=== PATIENT | female | born 1985 | race American Indian/Alaskan Native ===

== ENCOUNTER 2020-06-28 13:25 | Outpatient (CLI) | payer OTHER ==
--- NOTE | 2020-06-30 13:23 | Ultrasound Report ---
BILATERAL DIGITAL DIAGNOSTIC MAMMOGRAM WITH CAD CONVENTIONAL, 06/28/2020 LEFT COMPLETE BREAST ULTRASOUND CLINICAL INFORMATION / INDICATION: History of chronic left breast pain, left clear/bloody nipple disc harge for 2 years, previous ultrasound with possible intraductal lesion TECHNIQUE: Digital bilateral mammographic imaging was performed. Limited ultrasound was performed. Th is examination was interpreted with the benefit of Computer-Aided Detection (CAD) analysis. COMPARISON: Multiple outside studies including bilateral mammography 03/24/2019, bilateral breast ult rasound 03/24/2019, left breast ultrasound biopsy images 03/26/2019, left breast ultrasound 0 FINDINGS: Breast Density: There are scattered areas of fibroglandular density. MAMMOGRAPHIC FINDINGS: No dominant mass, suspicious calcifications, or architectural distortion in ei ther breast. Interval left biopsy changes are seen in the subareolar region. Mild bilateral nodularit y is stable. Mild calcifications are stable. ULTRASOUND FINDINGS: Complete sonographic evaluation of all 4 quadrants and retroareolar region was p erformed. Previous ultrasounds have been in the subareolar area is only. Left breast: In the subareolar area on prior studies intraductal lesions have been seen measuring up to 16 mm in length. That largest lesion appeared to have undergone biopsy in 2019. More recent images and March 2020 appear to show one or 2 much smaller intraductal mildly echogenic foci measuring u p to 4 mm. On today's examination in the retroareolar area of there are multiple intraductal lesions noted involving multiple ducts. Moderate multiduct ductal ectasia is seen. The largest individual les ion measures 9 mm at approximately 11:30 which appears likely to be the same area noted in 2019 with subsequent biopsy. No significant increased vascularity is seen. Just medial to the nipple area at 9:00, 3 cm from the nipple, 2 adjacent benign-appearing hypoechoic nodules are seen measuring up to 7 mm which are not clearly intraductal. In the 1:00 position, 4 cm from the nipple, a small solid nodule is seen measuring 12 mm. This does n ot show shadowing. I do not have an assessment of vascularity. Borders are mildly microlobulated. Les ion is wider than tall. Just inferiorly at 2:00, 4 cm from the nipple, a 4 mm minimal hypoechoic nodu le is seen which has a benign type of appearance. The left axilla shows a node with a focally prominent cortex measuring up to 6 mm though with a large fatty hilum. Right breast: In the retroareolar area medially and ovoid 2 cm wider than tall mass is seen without o bvious vascularity with possible mild shadowing. Borders are mildly macrolobulated though not all bor ders are well-defined. In the 1:00 position, 5 cm from the nipple, an irregular mass is seen measuring 12 mm with moderate s hadowing. Borders are microlobulated and microlobulated. At 1:00, 3 cm from the nipple, a small simple cyst is noted. At 5:00 in the subareolar area an appare nt intraductal area of moderate echogenicity is seen which may be a nodule measuring 6 mm. Also in th e retroareolar area 2 cm from the nipple at 10:00, what may be an intraductal lesion versus debris is seen measuring 6 mm. At the 6:00 position, 3 cm from the nipple, possible nodule is seen versus a band of breast tissue. T his measures 12 mm in length and shows no significant shadowing or vascularity. In the 9:00 position, 9 cm from the nipple, what appears to be a small cyst cluster is noted. In the 10:00 position, 10 cm from the nipple, an ovoid solid nodule is seen without shadowing but wit h mild peripheral and internal vascularity. Borders are slightly microlobulated. An adjacent 6 mm patience ign-appearing nodule is seen. These 2 nodules appear to correspond to is stable nodularity mammograph ically. Right axilla shows no significant lesions. IMPRESSION: 1. There appears to continue to be extensive left retroareolar intraductal filling defects which may represent papilloma formation though some of this could be debris. This includes areas noted on prior examinations and an area of prior biopsy as described. A small similar area is seen on the right. 2. Multiple bilateral breast nodules are seen with the most prominent in the right retroareolar regio n. Areas of most concern are the described mass in the right retroareolar region medially and a small mass in the right breast at 1:00, 5 cm from the nipple. Biopsy of both of these areas is indicated s onographically. 3. The multiple other nodules are less worrisome in appearance. 4. It may be worthwhile to obtain MR given the multiplicity of bilateral lesions prior to possible bi opsies. This may be guided biopsy choice further. Follow up recommendation: As above BI-RADS Category 4: Suspicious for Malignancy. A "normal" or negative report should not discourage follow up or biopsy of a clinically significant f inding. A written summary of these findings will be mailed to the patient. The patient will be entered into a mammography reporting system which will generate a reminder letter for the patient's next appointmen t at the appropriate interval. According to the [employer], yearly mammograms are recommended starting at age 40 and continuing as long as a woman is in good health. Breast MRI is recommended for women with an dianne roximately 20-25% or greater lifetime risk of breast cancer, including women with a strong family his tory of breast or ovarian cancer and women who have been treated for Hodgkin's disease. Signer Name: Hernandez Chang MD Signed: 06/30/2020 1:19 PM Workstation Name: [email or web address]
== END 2020-06-28 13:26 | disposition home or self-care (01) ==
LOC: SPVWC 13:25
PROVIDERS: ATTEND Surgery
DX: N63.41 Unspecified lump in right breast, subareolar (principal); N60.42 Mammary duct ectasia of left breast; N64.52 Nipple discharge
CPT/HCPCS: 77066

== ENCOUNTER 2020-08-24 12:24 | Outpatient (CLI) | payer OTHER ==
--- NOTE | 2020-08-30 10:39 | Magnetic Resonance Report ---
Bilateral breast MRI with and without contrast. History: NIPPLE DISCHARGE Procedure: Axial T1 and T2-weighted fat-sat images were obtained precontrast. 14 cc Clariscan was in jected intravenously and serial axial T1-weighted images with fat saturation were obtained postcontra st. 3-D MIP projections, Kinetic analysis and subtraction imaging was utilized to evaluate. A [employer] ed 8 channel breast coil was utilized for image acquisition. Comparison: Bilateral breast ultrasound 06/28/2020, bilateral mammogram 06/28/2020 Findings: Background level of enhancement is mild. No suspicious axillary or clavicular nodes are identified. No abnormal bone marrow signal is seen. No significant chest wall enhancement is noted. Right breast: In the upper inner quadrant of the right breast at approximately 1:00, anterior to mid depth, a 9 mm ovoid nodule is seen with strong washout on kinetic profile. This is not clearly a lymp h node. I believe this correlates reasonably well to the less well-defined 12 mm lesion on ultrasound at 1:00, 5 cm from the nipple which was of concern sonographically. In the far posterior aspect of the upper outer right breast at 10:00, a 1 cm ovoid lesion is seen wit hout a good T2 correlate which shows heterogenous kinetics. This appears to roughly correspond to the larger of the 2 nodules at 10:00, 10 cm from the nipple, seen sonographically though these nodules w ere stable mammographically. No other significantly suspicious lesions are seen though there are scattered small areas of nodulari ty with a more benign appearance. The mass seen on ultrasound in the retroareolar area is not well de monstrated on MR. Left breast: In the left breast in the retroareolar region there was concern sonographically over sev eral intraductal lesions which have been present for some time based on older studies as discussed in the ultrasound report. The sonographic findings are much more impressive than the findings on today' s study though there is a small amount of asymmetric enhancement seen in the retroareolar ducts parti cularly centrally and more medially. In the approximate 12:30 to 1:00 position of the left breast anteriorly and irregular area of enhance ment is seen measuring 13 mm which I believe corresponds to an area of hypoechogenicity on ultrasound at 1:00, 4 cm from the nipple. This shows mildly heterogenous kinetics. No other lesions are seen th ought of significant concern. Impression: Complicated situation with moderate correlation seen between ultrasound and MR studies. I believe it may be necessary to perform ultrasound-guided biopsy bilaterally. This would include on t he right the sonographic abnormalities seen at 1:00, 5 cm from the nipple and at 10:00 10 cm from the nipple. Additionally, on ultrasound a right retroareolar mass was seen which is not especially worri some by MR but had some suspicious features sonographically and I would suggest biopsy of this lesion as well. On the left I would suggest sonographic biopsy of the irregular abnormality at the 1:00 position 4 cm from the nipple and of the most worrisome (by sonographic criteria) one or 2 areas of intraductal no dularity. BIRADS: 4: Suspicious Signer Name: Hernandez Chang MD Signed: 08/30/2020 10:34 AM Workstation Name: [id number]
== END 2020-08-24 12:25 | disposition home or self-care (01) ==
LOC: SPVIMAG 12:24
PROVIDERS: ATTEND Surgery
DX: N63.12 Unspecified lump in the right breast, upper inner quadrant (principal); N63.42 Unspecified lump in left breast, subareolar; N64.52 Nipple discharge; N60.82 Other benign mammary dysplasias of left breast
CPT/HCPCS: A9575; C8908; 77049

== ENCOUNTER 2020-09-20 08:50 | Outpatient (CLI) | payer OTHER ==
--- NOTE | 2020-09-20 12:10 | Ultrasound Report ---
ULTRASOUND-GUIDED CORE NEEDLE BIOPSY Left BREAST x2 WITH CLIP PLACEMENT INDICATION: 2 left breast lesions (left 1:00 and left subareolar). FINDINGS: Informed consent was obtained. The lesion within the left breast at the 1:00 position, 4 cm from the nipple, was identified with ultrasound. The overlying skin was cleansed with chloro prep and local an esthesia was obtained with a 1% lidocaine solution. Under ultrasound guidance a 14-gauge spring loade d core biopsy needle was advanced to the lesion. A total of 5 core samples were obtained. A U-shaped biopsy marker was placed to ambar the site of the biopsy. The lesion within the left subareolar breast was identified with ultrasound. The overlying skin was c leansed with chloro prep and local anesthesia was obtained with a 1% lidocaine solution. Under ultras ound guidance a 14-gauge spring loaded core biopsy needle was advanced to the lesion. A total of 4 co re samples were obtained. A spring shaped biopsy marker was placed to ambar the site of the biopsy. Specimen samples were placed in formalin and sent to pathology for analysis. Patient tolerated the p rocedure well and no immediate complications were identified. A post procedure mammogram demonstrates biopsy markers in the expected location. It should be noted that there is a second spring loaded bio psy marker located in the directly behind the nipple. This was from a previous biopsy. The new spring -shaped biopsy marker (placed today) is identified and annotated on the diagnostic mammogram performe d the same day. IMPRESSION: Technically successful ultrasound-guided core biopsy of left breast lesion at the 1:00 position with placement of a U-shaped biopsy marker. Technically successful ultrasound-guided core biopsy of left breast lesion at the subareolar location with placement of a spring shaped biopsy marker. An addendum will be added to this report once pathology results are available. Signer Name: Ray Randall MD Signed: 09/20/2020 12:06 PM Workstation Name: [id number]
--- NOTE | 2020-09-20 12:16 | Mammography Report ---
LEFT DIAGNOSTIC MAMMOGRAM INDICATION: Status post biopsy of 2 areas in the left breast. COMPARISON: 06/28/2020. FINDINGS: Left breast CC and LM projection mammograms were obtained. These document the location of l eft breast 1:00 biopsy (U-shaped biopsy marker) and left breast subareolar biopsy (spring shaped biop sy marker). It should be noted that there is a second spring-shaped biopsy marker which is present (p rior biopsy) just behind the nipple. The biopsy marker which was placed today is annotated and docume nted on the mammogram images. IMPRESSION: Mammographic images documenting location of biopsy markers at the 1:00 and subareolar location in the left breast. BI-RADS Category 4: Suspicious for Malignancy. Signer Name: Ray Randall MD Signed: 09/20/2020 12:11 PM Workstation Name: [id number]
--- NOTE | 2020-09-20 12:18 | Mammography Report ---
RIGHT DIAGNOSTIC MAMMOGRAM INDICATION: Status post biopsy of 2 areas in the right breast (1:00 and 10:00) COMPARISON: Ultrasound performed earlier the same day. FINDINGS: Right breast CC and LM projection mammograms were obtained. These document location of a U- shaped biopsy marker (1:00 position) and spring-shaped biopsy marker (10:00 position) at sites of rec ent ultrasound-guided core biopsies. The biopsy markers appear in the appropriate locations, although a mammographic correlate was never definitely identified. IMPRESSION: Right breast mammograms documenting location of biopsy marker status post ultrasound guided core biop sies at the 1:00 and 10:00 positions. BI-RADS Category 4: Suspicious for Malignancy. Signer Name: Ray Randall MD Signed: 09/20/2020 12:14 PM Workstation Name: [id number]
--- NOTE | 2020-09-23 12:54 | Ultrasound Report ---
ULTRASOUND-GUIDED CORE NEEDLE BIOPSY Right BREAST x2 WITH CLIP PLACEMENTS INDICATION: Right breast masses at the 1:00 and 10:00 positions. FINDINGS: Informed consent was obtained. The mass within the right breast at the 1:00 position, 5 cm from the n ipple, was identified with ultrasound. The overlying skin was cleansed with chloro prep and local ane sthesia was obtained with a 1% lidocaine solution. Under ultrasound guidance a 14-gauge spring loaded core biopsy needle was advanced to the lesion. A total of 5 core samples were obtained. A U-shaped b iopsy marker was placed to ambar the site of the biopsy. The mass within the right breast at the 10:00 position, 10 cm from the nipple, was identified with ul trasound. The overlying skin was cleansed with chloro prep and local anesthesia was obtained with a 1 % lidocaine solution. Under ultrasound guidance a 14-gauge spring loaded core biopsy needle was advan ashtyn to the lesion. A total of 4 core samples were obtained. A spring shaped biopsy marker was placed to ambar the site of the biopsy. Specimen samples were placed in formalin and sent to pathology for an alysis. Patient tolerated the procedure well and no immediate complications were identified. A post procedure mammogram shows biopsy markers in the expected location, although a definite mammographic was never identified. IMPRESSION: Technically successful ultrasound-guided core biopsy of right breast mass at the 1:00 position with p lacement of a U-shaped biopsy marker. Technically successful ultrasound-guided core biopsy of right breast mass at the 10:00 position with placement of a spring shaped biopsy marker. An addendum will be added to this report once pathology results are available. Signer Name: Ray Randall MD Signed: 09/20/2020 11:52 AM Workstation Name: [id number]
== END 2020-09-20 08:51 | disposition home or self-care (01) ==
LOC: SPVWC 08:50
PROVIDERS: ATTEND Surgery
DX: N63.22 Unspecified lump in the left breast, upper inner quadrant (principal); N63.42 Unspecified lump in left breast, subareolar; N63.11 Unspecified lump in the right breast, upper outer quadrant; N63.21 Unspecified lump in the left breast, upper outer quadrant; N64.89 Other specified disorders of breast; N60.21 Fibroadenosis of right breast; D24.2 Benign neoplasm of left breast
CPT/HCPCS: 77066; 88305; 88342

== ENCOUNTER 2020-10-26 06:38 | Day surgery (SDC) | payer OTHER ==
[2020-10-20 14:37] LABS: Hemoglobin 11.8 gm/dl (10.1-14.3); Mean Corpuscular HGB Conc 33 % (30-34); Mean Corpuscular Volume 83 fl (79-97); Platelet Count 296 K/mm3 (140-440); Red Blood Count 4.36 M/mm3 (3.65-5.03)
[~2020-10-26 06:38] MED LIST: ceFAZolin/Water 2 GM/20 ML 2 GM/20 ML SYRINGE IV NR
[2020-10-26] MEDS ORDERED: LIDOCAINE (1%) 10 MG/1 ML VIAL 20 ML MDV ONE (07:40)
[2020-10-26] MEDS ORDERED: MAGNESIUM OXIDE 400 MG TAB PO NR (08:30)
[2020-10-26] MEDS ORDERED: ONDANSETRON 4 MG/2 ML INJ IV PRN (08:30)
[2020-10-26] MEDS ORDERED: fentaNYL 100 MCG/2 ML INJ IV NR (08:30)
[2020-10-26] MEDS ORDERED: ACETAMINOPHEN 500 MG TAB PO NR (08:30)
[2020-10-26] MEDS ORDERED: LACTATED RINGERS 1,000 ML IV SCH (08:30)
[2020-10-26] MEDS ORDERED: HYDROmorphone 1 MG/1 ML INJ IV PRN ×2 (08:30)
--- NOTE | 2020-10-26 08:34 | Anesthesia Day of Surgery ---
Anesthesia Day of Surgery - Day of Surgery Patient Examined: Yes Patient H&P Reviewed: Yes Patient is NPO: Yes
--- NOTE | 2020-10-26 08:35 | Anesthesia Consultation ---
Anesthesia Consult and Med Hx Date of service: 10/26/20 - Airway Anesthetic Teeth Evaluation: Good ROM Head & Neck: Adequate Mental/Hyoid Distance: Adequate Mallampati Class: Class II Intubation Access Assessment: Good - Pre-Operative Health Status ASA Pre-Surgery Classification: ASA2 Proposed Anesthetic Plan: General Nerve Block: ES - Pulmonary Hx Smoking: No - Central Nervous System Hx Psychiatric Problems: Yes (Anxiety/Depression) - Endocrine Hx Thyroid Disease: Yes Hx Hypothyroidism: Yes (Thyroidectomy) - Hematic Hx Sickle Cell Disease: No - Other Systems Hx Cancer: Yes Hx Obesity: No
[2020-10-26] MEDS ORDERED: MIDAZOLAM 2 MG/2 ML INJ IV NR (09:00)
[2020-10-26] MEDS ORDERED: CELECOXIB 200 MG CAP PO NR (09:00)
[2020-10-26] MEDS ORDERED: BUPIVACAINE-EPINEPHRINE/PF 0.25%-1:200,000 (30 ML) VIAL INFILTRATI ONE (09:02)
[2020-10-26] MEDS ORDERED: dexAMETHasone 4 MG/ML VIAL ONE (09:02)
[2020-10-26] MEDS ORDERED: LIDOCAINE MPF (2%) 20 MG/1 ML VIAL 5 ML ONE (10:27)
[2020-10-26] MEDS ORDERED: HYDROmorphone 1 MG/1 ML INJ ONE (10:27)
[2020-10-26] MEDS ORDERED: propofoL 200 MG/20 ML VIAL IV ONE (10:27)
--- NOTE | 2020-10-26 12:04 | Mammography Report ---
MAMMOGRAPHIC GUIDED LEFT BREAST NEEDLE LOCALIZATION, 10/26/2020 MAMMOGRAPHIC GUIDED NEEDLE LOBE EA ADD. LEFT CLINICAL INFORMATION / INDICATION: 2 left breast lesions with proliferative fibrocystic changes, scle rosing adenosis and fibroadenomatoid changes. COMPARISON: 09/20/2020 PROCEDURE: Risks, benefits and indications to the procedure were discussed with the patient. The patient agreed to proceed with both verbal and written consent. A timeout procedure was performed with 2 patient rafita ntifiers. The breast was prepped with betadine in the usual sterile fashion. Approximately 5 cc of Lidocaine 1% was used for local anesthesia. Under direct digital mammographic guidance, 2 separate 5 cm localizat ion wires were placed targeting surgical clips near 1:00 approximately 2.3 cm from the nipple and 6.7 cm. Post-biopsy mammogram confirms satisfactory positioning of the localization wires. The wires wer e secured to the skin with a sterile dressing. The patient tolerated procedure without difficulty. No complications were encountered. IMPRESSION: Satisfactory mammographic guided wire localization of 2 left breast lesions as described. Signer Name: Jj Pollack Jr, MD Signed: 10/26/2020 11:59 AM Workstation Name: [id number]
[2020-10-26] MEDS ORDERED: ONDANSETRON 4 MG/2 ML INJ ONE (12:17)
[2020-10-26] MEDS ORDERED: BACITRACIN ZINC OINT 28.4 GM TP ONE (12:18)
--- NOTE | 2020-10-26 12:41 | Mammography Report ---
LEFT BREAST SPECIMEN RADIOGRAPH, 10/26/2020 INDICATION: Left breast target lesion: . COMPARISON: Needle localization films performed earlier today FINDINGS: The previously localized target lesion in the subareolar region of the left breast is present in its entirety in the submitted specimen. The localization wire is present. IMPRESSION: 1. Radiographic evidence of satisfactory excision of the left breast subareolar lesion.. Signer Name: Jj Pollack Jr, MD Signed: 10/26/2020 12:37 PM Workstation Name: [id number]
--- NOTE | 2020-10-26 12:42 | Short Stay Summary ---
Short Stay Documentation Date of service: 10/26/20 - History H&P: obtained from office - Allergies and Medications Current Medications: Allergies No Known Allergies Allergy (Verified 10/18/20 13:12) Home Medications Medication Instructions Recorded Confirmed Last Taken Type Levothyroxine [Synthroid] 100 mcg PO QAM 10/18/20 10/26/20 10/26/20 06:00 History Ibuprofen [Motrin 800 MG tab] 800 mg PO Q8HR PRN #12 tablet 10/26/20 Unknown Rx Active Medications Acetaminophen (Acetaminophen 500 Mg Tab) 1,000 mg PO ONCE NR Stop: 10/26/20 20:00 Last Admin: 10/26/20 08:55 Dose: 1,000 mg Documented by: Celecoxib (Celecoxib 200 Mg Cap) 400 mg PO PREOP NR Stop: 10/26/20 20:00 Last Admin: 10/26/20 08:55 Dose: 400 mg Documented by: Fentanyl (Fentanyl 100 Mcg/2 Ml Inj) 100 mcg IV ONCE NR Stop: 10/26/20 20:00 Last Admin: 10/26/20 09:09 Dose: 100 mcg Documented by: Hydromorphone HCl (Hydromorphone 1 Mg/1 Ml Inj) 0.25 mg IV Q10MIN PRN PRN Reason: Pain, Moderate (4-6) Stop: 10/26/20 23:00 Hydromorphone HCl (Hydromorphone 1 Mg/1 Ml Inj) 0.5 mg IV Q10MIN PRN PRN Reason: Pain , Severe (7-10) Stop: 10/26/20 23:00 Cefazolin Sodium (Ancef/Sterile Water 2 Gm/20 Ml) 2 gm in 20 mls @ 80 mls/hr IV PREOP NR; Protocol Stop: 10/26/20 21:00 Lactated Ringer's (Lactated Ringers) 1,000 mls @ 125 mls/hr IV DIRECT MADHAV Last Admin: 10/26/20 08:45 Dose: 125 mls/hr Documented by: Magnesium Oxide (Magnesium Oxide 400 Mg Tab) 400 mg PO ONCE NR Stop: 10/26/20 20:00 Last Admin: 10/26/20 08:55 Dose: 400 mg Documented by: Midazolam HCl (Midazolam 2 Mg/2 Ml Inj) 2 mg IV PREOP NR Stop: 10/26/20 23:59 Last Admin: 10/26/20 09:09 Dose: 2 mg Documented by: Ondansetron HCl (Ondansetron 4 Mg/2 Ml Inj) 4 mg IV ONCE PRN PRN Reason: Nausea And Vomiting Stop: 10/26/20 20:00 - Brief post op/procedure progress note Date of procedure: 10/26/20 Pre-op diagnosis: Left breast masses of upper outer quadrant Post-op diagnosis: same Procedure: Left breast masses needle localization excisional biopsy Anesthesia: GETA Findings: Left breast mass with wire and clip present Surgeon: VIKKI VINCENT Estimated blood loss: minimal Pathology: list Specimen disposition: to lab Condition: stable - Disposition Condition at discharge: Good Disposition: DC- TO HOME OR SELFCARE Short Stay Discharge Plan Activity: other (no heavy lifting) Diet: regular Wound: keep clean and dry (wear breast binder; may shower in 48 hours; no baths; apply bacitractin twice daily) Follow up with: VIKKI VINCENT MD [Staff Physician] - 7 Days Prescriptions: Ibuprofen [Motrin 800 MG tab] 800 mg PO Q8HR PRN #12 tablet PRN Reason: Pain , Severe (7-10)
--- NOTE | 2020-10-26 12:42 | Mammography Report ---
LEFT BREAST SPECIMEN RADIOGRAPH, 10/26/2020 INDICATION: Left breast target lesion: . COMPARISON: Needle localization films performed earlier today FINDINGS: The previously localized target lesion in the superior left breast approximately 6.7 cm from the nipp le is present in its entirety in the submitted specimen. The localization wire is present. IMPRESSION: 1. Radiographic evidence of satisfactory excision of the target lesion. Signer Name: Jj Pollack Jr, MD Signed: 10/26/2020 12:38 PM Workstation Name: [id number]
--- NOTE | 2020-10-26 12:50 | Operative Report ---
Operative Report Operative Report: Operative Report: October 26, 2020 Preoperative diagnosis: Left breast masses of the upper outer quadrant x2 Postoperative diagnosis: Same Procedure: Two left breast masses needle localization excisional biopsy of the upper outer quadrant and retroareolar Surgeon: Lucía Silva MD Digital Court Reporter: Reese Jin MD Anesthesia: General Findings: Left wires and clips present within radiograph specimen Complications: None EBL: Minimal Disposition: PACU in good condition Indications for operative procedure: This is a 35 year old lady with history of left nipple discharge. Bilateral diagnostic mammogram and bilateral breast ultrasound performed June 28, 2020 with mammographic findings of stable mild nodularity bilaterally; left breast finding of multiple bilateral breast nodules as well as right breast mulptiple breast nodules and breast MRI recommended. Breast MRI obtained with findings at the 10 o'clock position 10 cm from nipple and 1 o'clock position 5 cm nipple biopsy recommended with biopsy performed and benign findings. Left breast subareolar and left breast 1 o'clock position 4 cm nipple with ultrasound-guided biopsies performed as well with findings of sclerosing intraductal papillomas with recommendation for excision to rule out malignancy. She wished to proceed with the above procedure and understood additional procedures may be indicated pending final pathology. Procedure in detail: The patient was taken to radiology for wire placement for localization of both intraductal papilloms of the upper outer quadrant. Anestheis placed left pectoral block. Patient was then taken to the operating room. Gen. anesthesia was administered. Left breast and axilla were prepped and draped in the normal sterile operative fashion. The wires were identified. Timeout was performed. Attention was then taken towards the left breast. Wire was located of the upper outer quadrant and retroareolar. A periareolar breast incision around 2:00 position was made with a 15 blade knife and dissection taken down to subcutaneous tissues. First began raising of the superior flap with removal of the wire from the skin with dissection taken past the area of concern and then taken down posteriorly, followed by raising of the inferior flap, medial flap and lateral flap with all flaps taken past the area of concern and then posteriorly past the wire. The breast area of concern was appropriately removed posteriorly with the aid of the Bovie cautery. The wire was not encountered. Specimen was marked and then sent to pathology and radiology; radiograph specimen with wire and clip present. Attention was then taken towards the lesion at the 1:00 position upper outer quadrnt. First began raising of the superior flap with removal of the wire from the skin with dissection taken past the area of concern and then taken down posteriorly, followed by raising of the inferior flap, medial flap and lateral flap with all flaps taken past the area of concern and then posteriorly past the wire. The breast area of concern was appropriately removed posteriorly with the aid of the Bovie cautery. The wire was not encountered. Specimen was marked and then sent to pathology and radiology; radiograph specimen with wire and clip present. Breast cavity was irrigated and hemostasis was obtained. The posterior deep breast tissues were approximated and closed using interrupted 3-0 Vicryl. The subcutaneous tissues were then approximated and closed using interrupted 3-0 Vicryl followed by closing of the skin with a running 4-0 Monocryl and skin affix. The patient tolerated surgery very well and she was awaken from anesthesia without any complication and transported to PACU in good condition.
[2020-10-26 13:53] VITALS: BP 128/82
--- NOTE | 2020-10-26 16:39 | Post Anesthesia Evaluation ---
- Post Anesthesia Evaluation Patient Participated: Yes Airway Patent: Yes Stable Respiratory Function: Yes Nausea/Vomiting: No Temp > 96.8F: Yes Pain Manageable: Yes Adequeate Hydration: Yes Anesthesia Complications: No Block Receding Appropriately: Yes Patient on Ventilator: No
== END 2020-10-26 14:15 | disposition home or self-care (01) ==
LOC: OR 06:38
PROVIDERS: ATTEND Surgery
DX: N63.21 Unspecified lump in the left breast, upper outer quadrant (principal); D24.2 Benign neoplasm of left breast; R92.0 Mammographic microcalcification found on diagnostic imaging of breast; N60.82 Other benign mammary dysplasias of left breast; E03.9 Hypothyroidism, unspecified; F32.9 Major depressive disorder, single episode, unspecified; F41.9 Anxiety disorder, unspecified; Z98.890 Other specified postprocedural states; Z79.899 Other long term (current) drug therapy; Z20.822 Contact with and (suspected) exposure to COVID-19; Z80.8 Family history of malignant neoplasm of other organs or systems
CPT/HCPCS: 19125; 19126; 19281; 19282; 36415; 64450; 76098; 84703; 85027; 88307; A4648; J0690; J1100; J1170; J2250; J2405; J2704; J3010; J7120; U0003